=== PATIENT | male | born 1935 | race Caucasian/White ===

== ENCOUNTER 2022-10-14 14:50 | Outpatient (CLI) | payer OTHER, SELFPAY ==
--- NOTE | ~2022-10-14 | XR_ITS ---
EXAM: XR lumbar spine 2-3V DATE: 10/14/2022 15:34 HISTORY: M54.9 - Dorsalgia, unspecified . COMPARISON: None available. FINDINGS: Mild lumbar scoliosis. 5 nonrib-bearing lumbar-type vertebral bodies. Pedicles intact. 4 mm retrolisthesis at L2-3. 4 mm anterolisthesis at L4-5. Vertebral body heights preserved. Multilevel d isc space narrowing from L2-3 through L4-5 with marginal osteophytosis. Vacuum phenomenon at L2-3. Se mary lower lumbar facet sclerosis and hypertrophy. Abdominal aortic calcification without evident ane urysm. No fracture or dislocation. 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 Multilevel severe facet arth ropathy. Reviewed, dictated and finalized at location K. 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 Multil evel severe facet arthropathy.
== END 2022-10-14 14:51 | disposition home or self-care (01) ==
PROVIDERS: PCP Family Medicine; Visit Provider Family Medicine
DX: M51.36 Other intervertebral disc degeneration, lumbar region (principal)
CPT/HCPCS: 72100

== ENCOUNTER 2022-11-20 09:00 | Outpatient (CLI) | payer OTHER, SELFPAY ==
[2022-11-20 19:20] LABS: Basophils Percent Auto 0.5 % (0.2-1.2); Eosinophils Absolute Auto 0.3 K/mm3 (0-0.3); Eosinophils Percent Auto 4.2 % (0-4.4); Hematocrit 42.9 % (42.0-52.0); Hemoglobin 14.1 g/dL (14.0-18.0); Immature Granulocyte Absolute 0.03 K/mm3 (0.00-0.031); Immature Granulocyte Percent A 0.4 % (0-0.5); Lymphocytes Absolute Auto 1.76 K/mm3 (0.9-3.2); Lymphocytes Percent Auto 22.2 % (18.3-44.2); Mean Corpuscular HGB Conc 32.9 g/dl (32-36); Mean Corpuscular Hemoglobin 31.3 pg (26-34); Mean Corpuscular Volume 95.1 fl (80-100); Mean Platelet Volume 10.5 fl (7.4-10.4); Monocytes Absolute Auto 0.8 K/mm3 (0.1-0.6); Monocytes Percent Auto 10.2 % (2.6-8.5); Neutrophils Percent Auto 62.5 % (45.5-73.1); Platelet Count Result 213 k/mm3 (150-375); Red Blood Count 4.51 M/mm3 (4.6-6.20); Red Cell Distribution Width 13.2 % (11.5-14.5); White Blood Count 7.9 K/mm3 (4.5-10.0)
[2022-11-20 19:48] LABS: Alanine Aminotransferase 30 U/L (6-50); Albumin Level 3.9 g/dL (3.5-5.1); Alkaline Phosphatase 76 U/L (38-126); Anion Gap 4 mmol/L (8-16); Aspartate Amino Transferase 31 U/L (17-59); Bilirubin,Total 0.5 mg/dL (0.2-1.3); Blood Urea Nitrogen 16 mg/dL (9-20); Calcium 8.8 mg/dL (8.4-10.2); Carbon Dioxide 31 mmol/L (22-30); Chloride 106 mmol/L (98-107); Cholesterol 237 mg/dL (0-200); Estimated Glomerular Filt Rate > 60; Glucose 100 mg/dL (65-110); HDL Direct 49 mg/dL; Sodium 141 mmol/L (137-145); Triglycerides 116 mg/dL (<150)
[2022-11-20 20:01] LABS: LDL Cholesterol Direct 144 mg/dL
[2022-11-20 20:18] LABS: Vitamin D 25 Hydroxy 20.2 ng/mL
[2022-11-20 20:19] LABS: Prostate Specific Antigen 2.1 ng/mL (< OR = 4.0)
== END 2022-11-20 09:01 | disposition home or self-care (01) ==
LOC: ANHGOSHLAB 09:01
PROVIDERS: PCP Family Medicine; Visit Provider Family Medicine
DX: E55.9 Vitamin D deficiency, unspecified (principal); Z12.5 Encounter for screening for malignant neoplasm of prostate; E78.5 Hyperlipidemia, unspecified; Z13.29 Encounter for screening for other suspected endocrine disorder; Z79.899 Other long term (current) drug therapy; E53.8 Deficiency of other specified B group vitamins
CPT/HCPCS: 36415; 80053; 80061; 82306; 82607; 84153; 84443; 85025; G0103

== ENCOUNTER 2022-12-22 08:00 | Outpatient (RCR) | payer OTHER, SELFPAY ==
--- NOTE | 2022-11-24 09:08 | PTOPEVAL1 ---
Assessment and note entered by Ligia Niak, PT, DPT Evaluation Information Assessment Status Evaluation Diagnosis low back pain Onset 1+ month Subjective Information Pt states he has low back pain that radiates down the back of his L leg. He does not report a known FABIOLA. He states he has the least pain when sitting. He states he can currently walk for 10-15 mins before needing to sit down. He states he would like to limit his pain and get back to living normally. Reported Pain Level Pain Score 4: Self Report Assessment PT Clinical Summary Guerrero is a 87 y/o male who presents to therapy today for his initial evaluation with a diagnosis of low back pain. Today he demonstrates decreased active lumbar motion that is limited by pain. He demonstrates LE strength and ROM that is WFL. He has increased muscle tension and tenderness throughout his L piriformis and quadratus lumborum region. Skilled physical therapy services are indicated to improve lumbar ROM, core strength, and body awareness, to limit pain, and to return to baseline function. Plan of Care Interventions Electrical Stimulation,Hot Pack/Cold Pack,Manual Therapy,Neuro Re-education,Patient/Caregiver Educati,Therapeutic Activities,Therapeutic Exercise PT Services Indicated Yes Treatment Frequency and 1x/wk for 4 wks Duration These treatments will address the objective and functional deficits as defined above. The patient will be advanced safely and appropriately in order for the patient to progress towards his/her prior level of function. Additional exercises will be introduced and as well as a comprehensive home exercise program upon discharge, if needed, ?to ensure carryover of functional gains achieved in the clinic. This treatment plan has been reviewed and agreement upon by the patient.
--- NOTE | 2022-12-22 08:38 | PTOPDC ---
Assessment and note entered by Ligia Naik, PT, DPT Evaluation Information Assessment Status Discharge Diagnosis low back pain Onset 1+ month Subjective Information Pt states his back pain is way better, but reports the pain is still there. He states he is still limited in how long he can stand d/t his back pain . Pt reports 80% improvement in overall symptoms. Pt reports fair complaince with his HEP. Reported Pain Level Pain Score 3: Self Report Assessment PT Clinical Summary Guerrero presents to therapy today for his progress report following 4 visits of skilled therapy to treat his low back pain. He demonstrates decreased muscle tenderness and decreased soft tissue density compared to his first visit. He has been instructed in a HEP and education was given on the importance of this. He will be discharged at this time to continue his HEP on his own and to follow up with referring provider if needed. Plan of Care PT Services Indicated No Treatment Frequency and discharge Duration
== END 2022-12-22 09:30 | disposition home or self-care (01) ==
LOC: ANHGOSHPT 08:00
PROVIDERS: PCP Family Medicine; Visit Provider Family Medicine
DX: M54.50 Low back pain, unspecified (principal); G89.29 Other chronic pain
CPT/HCPCS: 97110; 97112; 97140; 97161; 97530

== ENCOUNTER 2023-05-21 08:24 | Outpatient (CLI) | payer OTHER, SELFPAY ==
[2023-05-21 14:34] LABS: Alanine Aminotransferase 24 U/L (6-50); Albumin Level 4.3 g/dL (3.5-5.1); Alkaline Phosphatase 71 U/L (38-126); Anion Gap 9 mmol/L (8-16); Aspartate Amino Transferase 44 U/L (17-59); Bilirubin,Total 0.6 mg/dL (0.2-1.3); Blood Urea Nitrogen 18 mg/dL (9-20); Calcium 9.2 mg/dL (8.4-10.2); Carbon Dioxide 29 mmol/L (22-30); Chloride 102 mmol/L (98-107); Cholesterol 192 mg/dL (0-200); Estimated Glomerular Filt Rate > 60; Glucose 91 mg/dL (65-110); HDL Direct 46 mg/dL; Potassium 4.4 mmol/L (3.4-5.0); Sodium 140 mmol/L (137-145); Triglycerides 113 mg/dL (<150)
[2023-05-21 14:46] LABS: LDL Cholesterol Direct 105 mg/dL
[2023-05-21 14:54] LABS: Vitamin D 25 Hydroxy 45.3 ng/mL
== END 2023-05-21 08:25 | disposition home or self-care (01) ==
LOC: ANHGOSHLAB 08:25
PROVIDERS: PCP Family Medicine; Visit Provider Family Medicine
DX: E55.9 Vitamin D deficiency, unspecified (principal); E78.5 Hyperlipidemia, unspecified; Z79.899 Other long term (current) drug therapy
CPT/HCPCS: 36415; 80053; 80061; 82306

== ENCOUNTER 2023-06-22 08:00 | Outpatient (RCR) | payer OTHER, SELFPAY ==
--- NOTE | 2023-05-25 09:48 | PTOPEVAL1 ---
Assessment and note entered by Aftab Alvares, PT Evaluation Information Assessment Status Evaluation Diagnosis Low back pain Onset 09/17/22 Subjective Information Reports that pain has been bad since before last Gee. Pain is always there and never completely goes away. He has a lot of trouble lifting anything over 20-30 pounds. He has a lot of trouble bending over for a floor retrieval or putting on his shoes at this time. He is sore in the mornings but that is when his time is best. He gets worse as the day goes on. Both of his legs get numb throughout the day making it hard to walk . Denies any falls or injury. Reported Pain Level Pain Score 4: Self Report Additional Pain Score Comments Denies use of pain medication Assessment PT Clinical Summary Patient presents with signs and symptoms consistent with lumbar stenosis. He is showing significant mobility deficits in jame hips most notably on R LE which is likely transferring stress into lumbar spine with standing and walking activity which is consistent with his subjective symptoms. Will benefit from skilled therapy to address these deficits for functional improvement and decreased pain with ADLs. Plan of Care Interventions Electrical Stimulation,Gait Training,Hot Pack/Cold Pack,Manual Therapy,Neuro Re-education, Therapeutic Activities,Therapeutic Exercise,Self- Care/Home Management PT Services Indicated Yes Treatment Frequency and 2x/week for 8 visits Duration These treatments will address the objective and functional deficits as defined above. The patient will be advanced safely and appropriately in order for the patient to progress towards his/her prior level of function. Additional exercises will be introduced and as well as a comprehensive home exercise program upon discharge, if needed, ?to ensure carryover of functional gains achieved in the clinic. This treatment plan has been reviewed and agreement upon by the patient.
--- NOTE | 2023-05-25 09:48 | OPREHPOC ---
Outpatient Therapy Plan of Care This is a Multidisciplinary Plan of Care that may contain components documented by all disciplines (PT, OT, and ST.) PT Problem 1 PT Problem #1 Knowledge Deficit PT Goal 1 Goal Lyons with home stretching program Target Visit 8 PT Problem 2 PT Problem #2 Pain PT Goal 1 Goal Report no pain greater than 2/10 after 4 PM indicating reduced daily pain progression Target Visit 8 PT Problem 3 PT Problem #3 Impaired Range of Motion PT Goal 1 Goal Improve jame HS 90/90 mobility to -30 degrees for reduced pelvinc pull with sitting and lifting Target Visit 8 PT Goal 2 Goal Demonstrate 25+ degrees jame of hip IR to reduce pull of ER group and help achieve terminal stance with gait Target Visit 8 PT Problem 4 PT Problem #4 Impaired Gait PT Goal 1 Goal Ambulate with even stride length bilaterally without shuffling for reduced fall risk Target Visit 8
--- NOTE | 2023-06-22 08:54 | OPREHPOC ---
Outpatient Therapy Plan of Care This is a Multidisciplinary Plan of Care that may contain components documented by all disciplines (PT, OT, and ST.) PT Problem 1 PT Problem #1 Knowledge Deficit PT Goal 1 Goal Izard with home stretching program Target Visit 8 Progress Met PT Problem 2 PT Problem #2 Pain PT Goal 1 Goal Report no pain greater than 2/10 after 4 PM indicating reduced daily pain progression Target Visit 8 Progress Met PT Problem 3 PT Problem #3 Impaired Range of Motion PT Goal 1 Goal Improve jame HS 90/90 mobility to -30 degrees for reduced pelvinc pull with sitting and lifting Target Visit 8 Progress Met PT Goal 2 Goal Demonstrate 25+ degrees jame of hip IR to reduce pull of ER group and help achieve terminal stance with gait Target Visit 8 Progress Met PT Problem 4 PT Problem #4 Impaired Gait PT Goal 1 Goal Ambulate with even stride length bilaterally without shuffling for reduced fall risk Target Visit 8 Progress Met
--- NOTE | 2023-06-22 08:54 | PTOPDC ---
Assessment and note entered by Aftab Alvares, PT Discharge Information Assessment Status Discharge Diagnosis Low back pain Onset 09/17/22 Subjective Information Reports that since starting therapy he has been doing a lot better. Pain has been down consistently but has come back from time to time based on activity level. Reports that hips feel more mobile and feels he is walking better. Reported Pain Level Pain Score 0: Self Report Assessment PT Clinical Summary Patient has met all goals for therapy at this time . Overall showing greatly improved hip mobility which has reflected improved gait cycle and stability. Suitable for discharge to [facility] at this time. No concerns with compliance at this time. Plan of Care PT Services Indicated No
== END 2023-06-22 10:14 | disposition home or self-care (01) ==
LOC: ANHGOSHPT 08:00
PROVIDERS: PCP Family Medicine; Visit Provider Family Medicine
DX: M54.50 Low back pain, unspecified (principal); M51.36 Other intervertebral disc degeneration, lumbar region; G89.29 Other chronic pain
CPT/HCPCS: 97110; 97112; 97140; 97161; 97530

== ENCOUNTER 2023-12-17 09:02 | Outpatient (CLI) | payer OTHER, SELFPAY ==
[2023-12-17 18:58] LABS: Basophils Absolute Auto 0.1 K/mm3 (0.0-0.1); Basophils Percent Auto 0.8 % (0.2-1.2); Eosinophils Absolute Auto 0.4 K/mm3 (0-0.3); Eosinophils Percent Auto 5.4 % (0-4.4); Hematocrit 48.4 % (42.0-52.0); Hemoglobin 15.4 g/dL (14.0-18.0); Immature Granulocyte Absolute 0.02 K/mm3 (0.00-0.031); Immature Granulocyte Percent A 0.3 % (0-0.5); Lymphocytes Absolute Auto 1.99 K/mm3 (0.9-3.2); Lymphocytes Percent Auto 27.6 % (18.3-44.2); Mean Corpuscular HGB Conc 31.8 g/dl (32-36); Mean Corpuscular Volume 97.6 fl (80-100); Mean Platelet Volume 11.1 fl (7.4-10.4); Monocytes Absolute Auto 0.6 K/mm3 (0.1-0.6); Neutrophils Absolute Auto 4.2 K/mm3 (1.3-6.7); Neutrophils Percent Auto 57.9 % (45.5-73.1); Platelet Count Result 203 k/mm3 (150-375); Red Blood Count 4.96 M/mm3 (4.6-6.20); Red Cell Distribution Width 13.2 % (11.5-14.5); White Blood Count 7.2 K/mm3 (4.5-10.0)
[2023-12-17 19:19] LABS: Anion Gap 7 mmol/L (8-16); Blood Urea Nitrogen 16 mg/dL (9-20); Carbon Dioxide 28 mmol/L (22-30); Chloride 103 mmol/L (98-107); Potassium 4.4 mmol/L (3.4-5.0); Sodium 138 mmol/L (137-145)
[2023-12-17 19:20] LABS: Alanine Aminotransferase 20 U/L (6-50); Albumin Level 4.3 g/dL (3.5-5.1); Alkaline Phosphatase 78 U/L (38-126); Aspartate Amino Transferase 30 U/L (17-59); Bilirubin,Total 0.7 mg/dL (0.2-1.3); Calcium 9.4 mg/dL (8.4-10.2); Cholesterol 197 mg/dL (0-200); Estimated Glomerular Filt Rate > 60; Glucose 88 mg/dL (65-110); HDL Direct 52 mg/dL; Triglycerides 149 mg/dL (<150)
[2023-12-17 19:26] LABS: Vitamin D 25 Hydroxy 15.8 ng/mL
[2023-12-17 19:32] LABS: LDL Cholesterol Direct 117 mg/dL
[2023-12-17 20:14] LABS: Hemoglobin A1C 5.8 % (<5.7)
== END 2023-12-17 09:03 | disposition home or self-care (01) ==
PROVIDERS: PCP Family Medicine; Visit Provider Family Medicine
DX: E55.9 Vitamin D deficiency, unspecified (principal); Z00.00 Encounter for general adult medical examination without abnormal findings; I10 Essential (primary) hypertension; Z12.5 Encounter for screening for malignant neoplasm of prostate; R73.9 Hyperglycemia, unspecified; E78.5 Hyperlipidemia, unspecified; E53.8 Deficiency of other specified B group vitamins
CPT/HCPCS: 36415; 80053; 80061; 82306; 82607; 83036; 84153; 84443; 85025; G0103

== ENCOUNTER 2024-06-14 09:51 | Outpatient (CLI) | payer OTHER, SELFPAY ==
[2024-06-14 17:48] LABS: Alanine Aminotransferase 19 U/L (6-50); Albumin Level 4.2 g/dL (3.5-5.1); Alkaline Phosphatase 70 U/L (38-126); Anion Gap 5 mmol/L (4-12); Aspartate Amino Transferase 43 U/L (17-59); Bilirubin,Total 0.6 mg/dL (0.2-1.3); Blood Urea Nitrogen 16 mg/dL (9-20); Calcium 9.3 mg/dL (8.4-10.2); Carbon Dioxide 31 mmol/L (22-30); Chloride 100 mmol/L (98-107); Estimated Glomerular Filt Rate > 60; Glucose 101 mg/dL (65-110); Potassium 4.4 mmol/L (3.4-5.0); Sodium 136 mmol/L (137-145)
[2024-06-14 18:40] LABS: Vitamin D 25 Hydroxy 31.2 ng/mL
[2024-06-14 20:53] LABS: Hemoglobin A1C 5.7 % (<5.7)
== END 2024-06-14 09:52 | disposition home or self-care (01) ==
PROVIDERS: PCP Family Medicine; Visit Provider Family Medicine
DX: R73.03 Prediabetes (principal); I10 Essential (primary) hypertension; E55.9 Vitamin D deficiency, unspecified
CPT/HCPCS: 36415; 80053; 82306; 83036

== ENCOUNTER 2024-12-21 09:01 | Outpatient (CLI) | payer OTHER, SELFPAY ==
--- OUTSIDE RECORDS SUMMARY | 2024-12-21 09:38 | XMS_ITS | Clinical Summary ---
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
[2024-12-21 12:41] LABS: Basophils Percent Auto 0.3 % (0.2-1.2); Eosinophils Absolute Auto 0.4 K/mm3 (0-0.3); Hematocrit 45.2 % (42.0-52.0); Hemoglobin 14.7 g/dL (14.0-18.0); Immature Granulocyte Absolute 0.04 K/mm3 (0.00-0.031); Immature Granulocyte Percent A 0.5 % (0-0.5); Lymphocytes Absolute Auto 1.79 K/mm3 (0.9-3.2); Lymphocytes Percent Auto 22.8 % (18.3-44.2); Mean Corpuscular HGB Conc 32.5 g/dl (32-36); Mean Corpuscular Hemoglobin 31.1 pg (26-34); Mean Corpuscular Volume 95.6 fl (80-100); Mean Platelet Volume 10.9 fl (7.4-10.4); Monocytes Absolute Auto 0.7 K/mm3 (0.1-0.6); Monocytes Percent Auto 8.9 % (2.6-8.5); Neutrophils Absolute Auto 4.9 K/mm3 (1.3-6.7); Neutrophils Percent Auto 62.5 % (45.5-73.1); Platelet Count Result 227 k/mm3 (150-375); Red Blood Count 4.73 M/mm3 (4.6-6.20); White Blood Count 7.8 K/mm3 (4.5-10.0)
[2024-12-21 13:26] LABS: Alanine Aminotransferase 19 U/L (6-50); Albumin Level 4.2 g/dL (3.5-5.1); Alkaline Phosphatase 78 U/L (38-126); Anion Gap 6 mmol/L (4-12); Aspartate Amino Transferase 42 U/L (17-59); Bilirubin,Total 0.5 mg/dL (0.2-1.3); Blood Urea Nitrogen 13 mg/dL (9-20); Calcium 9.3 mg/dL (8.4-10.2); Carbon Dioxide 30 mmol/L (22-30); Chloride 104 mmol/L (98-107); Cholesterol 221 mg/dL (0-200); Estimated Glomerular Filt Rate > 60; Glucose 103 mg/dL (65-110); HDL Direct 44 mg/dL; Potassium 4.6 mmol/L (3.4-5.0); Sodium 140 mmol/L (137-145); Triglycerides 134 mg/dL (<150)
[2024-12-21 13:37] LABS: LDL Cholesterol Direct 137 mg/dL
[2024-12-21 13:53] LABS: Vitamin D 25 Hydroxy 45.5 ng/mL
[2024-12-21 13:58] LABS: Prostate Specific Antigen 4.6 ng/mL (< OR = 4.0)
[2024-12-21 15:53] LABS: Hemoglobin A1C 5.6 % (<5.7)
== END 2024-12-21 09:02 | disposition home or self-care (01) ==
LOC: ANHGOSHLAB 09:02
PROVIDERS: PCP Family Medicine; Visit Provider Family Medicine
DX: Z12.5 Encounter for screening for malignant neoplasm of prostate (principal); E78.5 Hyperlipidemia, unspecified; I10 Essential (primary) hypertension; E55.9 Vitamin D deficiency, unspecified; R73.03 Prediabetes; E53.8 Deficiency of other specified B group vitamins
CPT/HCPCS: 36415; 80053; 80061; 82306; 82607; 83036; 84153; 84443; 85025; G0103

== ENCOUNTER 2025-06-28 09:05 | Outpatient (CLI) | payer OTHER, SELFPAY ==
--- OUTSIDE RECORDS SUMMARY | 2025-06-28 09:45 | XMS_ITS | Clinical Summary ---
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
[2025-06-28 19:37] LABS: Alanine Aminotransferase 19 U/L (6-50); Albumin Level 4.0 g/dL (3.5-5.1); Alkaline Phosphatase 74 U/L (38-126); Anion Gap 6 mmol/L (4-12); Aspartate Amino Transferase 28 U/L (17-59); Bilirubin,Total 0.5 mg/dL (0.2-1.3); Blood Urea Nitrogen 14 mg/dL (9-20); Calcium 9.0 mg/dL (8.4-10.2); Carbon Dioxide 27 mmol/L (22-30); Chloride 104 mmol/L (98-107); Cholesterol 161 mg/dL (0-200); Estimated Glomerular Filt Rate > 60; Glucose 97 mg/dL (65-110); HDL Direct 46 mg/dL; Potassium 4.0 mmol/L (3.4-5.0); Sodium 137 mmol/L (137-145); Total Protein 7.2 g/dL (6.3-8.2); Triglycerides 95 mg/dL (<150)
[2025-06-28 20:13] LABS: Prostate Specific Antigen 8.7 ng/mL (< OR = 4.0)
[2025-06-28 20:36] LABS: Hemoglobin A1C 5.7 % (<5.7)
== END 2025-06-28 09:06 | disposition home or self-care (01) ==
LOC: ANHGOSHLAB 09:06
PROVIDERS: PCP Family Medicine; Visit Provider Family Medicine
DX: Z12.5 Encounter for screening for malignant neoplasm of prostate (principal); R97.20 Elevated prostate specific antigen [PSA]; E78.5 Hyperlipidemia, unspecified; R73.03 Prediabetes
CPT/HCPCS: 36415; 80053; 80061; 83036; 84153; G0103